=== PATIENT | male | born 1960 | race Caucasian/White ===

== ENCOUNTER 2017-03-29 08:13 | Observation (INO) | payer OTHER, MEDICAID ==
[~2017-03-29] VITALS: Ht 30.5 cm; Wt 77.1 kg
[2017-03-29 09:11] LABS: Basophils # (auto) 0 uL; Basophils % (auto) 0.3 % (0.0-2.0); Eosinophils # (auto) 0 uL; Eosinophils % (auto) 0.4 % (0.0-7.0); Hematocrit 45.9 % (41.0-53.0); Hemoglobin 15.6 g/dL (13.5-17.5); Lymphocytes # (auto) 1.3 uL; Lymphocytes % (auto) 17.3 % (10.0-50.0); Mean Corpuscular Hemoglobin 31.4 pg (28.0-32.0); Mean Corpuscular Hgb Conc. 34.1 g/dL (32.0-36.0); Mean Corpuscular Volume 92.1 fL (80.0-100.0); Mean Platelet Volume 7.4 fL (7.4-10.4); Monocytes # (auto) 0.7 uL; Monocytes % (auto) 9.4 % (0.0-12.0); Neutrophils # (auto) 5.3 uL; Neutrophils % (auto) 72.6 % (37.0-80.0); Platelet Count (auto) 231 10^3/uL (140-450); Red Cell Distribution Width 14.5 % (11.6-16.0); White Blood Cell 7.3 10^3/uL (4.4-10.8)
[2017-03-29 09:33] LABS: Urine RBC None Seen /hpf (0 - 3)
[2017-03-29 09:51] LABS: Urine Bilirubin Negative (Negative); Urine Blood Negative /uL (Negative); Urine Color Yellow (Yellow); Urine Glucose Normal (Normal); Urine Ketone Negative (Negative); Urine Nitrite Negative (Negative); Urine Urobilinogen Normal (Negative)
[2017-03-29 09:56] LABS: Albumin 3.8 g/dL (3.4-5.0); BUN/Creatinine Ratio 14.3; Bilirubin, Total 0.5 mg/dL (0.2-1.0); Calcium 8.7 mg/dL (8.5-10.1); Potassium 4.3 mmol/L (3.5-5.1); Total Protein 7.8 g/dL (6.4-8.2)
[2017-03-29] MEDS ORDERED: SODIUM CHLORIDE 0.9% 1,000 ML IV ONE (10:17)
[2017-03-29] MEDS ORDERED: PROMETHAZINE HCL 25 MG/ML 1ML IV PRN (10:30)
[2017-03-29] MEDS ORDERED: KETOROLAC TROMETH 30 MG/ML 1ML VIAL IV ONE (10:30)
[2017-03-29 11:10] LABS: Magnesium 2.3 mg/dL (1.6-2.6)
[2017-03-29 11:19] VITALS: BP 123/90
== END 2017-03-29 12:41 | disposition home or self-care (01) | DRG 251 ==
LOC: ER 08:13 → OVERFLOW 10:19 → ER 12:41 → OVERFLOW 12:41
PROVIDERS: ADMIT Emergency Medicine; ATTEND Emergency Medicine
DX: R10.9 Unspecified abdominal pain (principal); B20 Human immunodeficiency virus [HIV] disease; I10 Essential (primary) hypertension; E11.9 Type 2 diabetes mellitus without complications; Z87.820 Personal history of traumatic brain injury
CPT/HCPCS: 36415; 71020; 74176; 80053; 81001; 83690; 83735; 85025; 93005; 96361; 96374; 96375; 99285; G0378; J1885; J2550; J7030

== ENCOUNTER 2018-09-22 12:32 | Emergency (ER) | payer OTHER, MEDICAID ==
[~2018-09-22] VITALS: Ht 170.2 cm; Wt 72.6 kg
[2018-09-22] MEDS ORDERED: SODIUM CHLORIDE 0.9% 1,000 ML IV ONE (13:45)
[2018-09-22 14:09] LABS: Basophils # (auto) 0 uL; Basophils % (auto) 0.3 % (0.0-2.0); Eosinophils # (auto) 0 uL; Eosinophils % (auto) 0.2 % (0.0-7.0); Hematocrit 33.7 % (41.0-53.0); Hemoglobin 11.3 g/dL (13.5-17.5); Lymphocytes # (auto) 0.9 uL; Lymphocytes % (auto) 10.4 % (10.0-50.0); Mean Corpuscular Hemoglobin 32.4 pg (28.0-32.0); Mean Corpuscular Hgb Conc. 33.6 g/dL (32.0-36.0); Mean Corpuscular Volume 96.4 fL (80.0-100.0); Monocytes # (auto) 0.7 uL; Monocytes % (auto) 8.2 % (0.0-12.0); Neutrophils # (auto) 6.9 uL; Neutrophils % (auto) 80.9 % (37.0-80.0); Platelet Count (auto) 141 10^3/uL (140-450); Red Cell Distribution Width 13.7 % (11.8-14.3); White Blood Cell 8.6 10^3/uL (4.4-10.8)
[2018-09-22 14:17] LABS: INR 1.06 (0.9-1.15); Prothrombin Time 11.3 sec (9.27-12.13)
[2018-09-22 14:25] LABS: Albumin 3.6 g/dL (3.4-5.0); Anion Gap 7 (5-15); Blood Urea Nitrogen 20 mg/dL (7-18); Calcium 7.9 mg/dL (8.5-10.1); Carbon Dioxide 23 mmol/L (21-32); Chloride 112 mmol/L (98-107); Glucose 86 mg/dL (74-106); Potassium 4.1 mmol/L (3.5-5.1); Sodium 142 mmol/L (136-145)
[2018-09-22 14:27] LABS: BUN/Creatinine Ratio 16.9; Blood Alcohol < 3.0 mg/dL (0-5); GFR African American 82 mL/min; GFR Non-African American 67 mL/min
[2018-09-22 14:34] LABS: Alanine Aminotransferase 28 U/L (16-61); Alkaline Phosphatase 62 U/L (45-117); Aspartate Aminotransferase 39 U/L (15-37); Bilirubin, Total 0.9 mg/dL (0.2-1.0); Total Protein 7.1 g/dL (6.4-8.2)
[2018-09-22 16:03] LABS: Urine Bacteria NONE SEEN /hpf (None Seen); Urine Blood Negative /uL (Negative); Urine Specific Gravity 1.029 (1.001-1.035); Urine WBC 1 /hpf (0 - 3)
[2018-09-22 16:10] LABS: Alcohol, Urine < 3.0 mg/dL (0-5); Amphetamine Screen, Urine NEGATIVE (NEGATIVE); Barbiturate Scree,Urine NEGATIVE (NEGATIVE); Benzodiazephine Screen, Urine NEGATIVE (NEGATIVE); Cannabinoid Screen, Urine NEGATIVE (NEGATIVE); Cocaine Screen, Urine NEGATIVE (NEGATIVE); Opiate Scree,Urine NEGATIVE (NEGATIVE); Phencyclidine Screen, Urine NEGATIVE (NEGATIVE)
[2018-09-22 16:27] VITALS: BP 129/81
== END 2018-09-22 16:50 | disposition home or self-care (01) ==
LOC: EDBD 12:32 → ER 12:32
DX: R41.82 Altered mental status, unspecified (principal); I10 Essential (primary) hypertension; Z90.49 Acquired absence of other specified parts of digestive tract; Z87.820 Personal history of traumatic brain injury
CPT/HCPCS: 36415; 70450; 80053; 80307; 80320; 81001; 83605; 84484; 85025; 85610; 85730; 87040; 87077; 87186; 93005; 94761; 96360